=== PATIENT | male | born 1940 | race Caucasian/White ===

== ENCOUNTER 2018-07-05 11:21 | Emergency (ER) | payer MEDICARE ==
[2018-07-05] MEDS ORDERED: NS 0.9% 1000 ML* 1,000 ML IV ONE (11:50)
--- NOTE | 2018-07-05 12:24 | ED ---
Syncope/Near Syncope - HPI Summary HPI Summary: A 78 y/o male presents to the ED s/p syncope this morning. Patient was in his attic washing windows and when he stood up too quickly and fainted. His head hit and shattered the window. He is unsure whether he lost consciousness. He remembers his calling his name once, but as per she called 3 times. He states that he is UTD on his tetanus shots. He is taking hydrochlorothiazide and 81mg aspirin. He denies any neck pain. - History Of Current Complaint Chief Complaint: EDSyncope Time Seen by Provider: 07/05/18 11:42 Hx Obtained From: Patient, Family/Creative Writer - Onset/Duration: Sudden Onset, Resolved Timing: Seconds - Patient is unsure about the length but thinks it was only for a couple seconds. Activity At Onset: Other - Standing up Associated Head Trauma: Yes Associated Signs And Symptoms: Head Trauma (Recent) - laceration on his head - Allergies/Home Medications Allergies/Adverse Reactions: Allergies Allergy/AdvReac Type Severity Reaction Status Date / Time No Known Allergies Allergy Verified 07/22/12 11:42 Home Medications: Home Medications Aspirin EC TAB* [Ecotrin EC Low Dose 81 MG*] 81 mg PO DAILY PRN 07/05/18 [ History Confirmed 07/05/18] Finasteride TAB* [Proscar TAB*] 5 mg PO DAILY 07/05/18 [History Confirmed ] Glucosamine CAP (NF) 1,000 cap PO DAILY 07/05/18 [History Confirmed 07/05/18] LoraTADine TAB(NF) [Claritin 10 MG TAB(NF)] 10 mg PO DAILY 07/05/18 [History Confirmed 07/05/18] Multivitamins/Minerals TAB* [Theragran/minerals TAB*] 1 tab PO DAILY 07/05/18 [ History Confirmed 07/05/18] Olmesartan/Hydrochlorothiazide [Olmesartan Medoxomil/Hydr 40-25 mg] 1 tab PO DAILY 07/05/18 [History Confirmed 07/05/18] Maddock-3 Fatty Acids (Nf) [Fish Oil (NF)] 1,000 mg PO DAILY 07/05/18 [History Confirmed 07/05/18] PMH/Surg Hx/FS Hx/Imm Hx Previously Healthy: No Cardiovascular History: Reports: Hx Hypertension Musculoskeletal History: Reports: Hx Rheumatoid Arthritis Sensory History: Denies: Hx Legally Blind, Hx Deafness - Surgical History Surgery Procedure, Year, and Place: none Infectious Disease History: No Infectious Disease History: Denies: Traveled Outside the [place] in Last 30 Days - Family History Known Family History: Negative: Cardiac Disease, Hypertension, Diabetes - Social History Occupation: Retired Lives: With Family Alcohol Use: None Substance Use Type: Reports: None Hx Tobacco Use: No Review of Systems Negative: Fever Positive: Myalgia - neck pain Positive: Other - laceration on his head Positive: Syncope All Other Systems Reviewed And Are Negative: Yes Physical Exam - Summary Physical Exam Summary: VITAL SIGNS: Reviewed. GENERAL: Patient is a well-developed and nourished MALE who is lying comfortable in the stretcher. Patient is not in any acute respiratory distress. HEAD AND FACE: Laceration over left occipital area, 1.5 cm in length. No ecchymosis, hematomas or skull depressions. No sinus tenderness. EYES: PERRLA, EOMI x 2, No injected conjunctiva, no nystagmus. EARS: Hearing grossly intact. Ear canals and tympanic membranes are within normal limits. MOUTH: Oropharynx within normal limits. NECK: Supple, trachea is midline, no adenopathy, no JVD, no carotid bruit, no c- spine tenderness, neck with full ROM. CHEST: Symmetric, no tenderness at palpation LUNGS: Clear to auscultation bilaterally. No wheezing or crackles. CVS: Regular rate and rhythm, S1 and S2 present, no murmurs or gallops appreciated. ABDOMEN: Soft, non-tender. No signs of distention. No rebound no guarding, and no masses palpated. Bowel sounds are normal. EXTREMITIES: FROM in all major joints, no edema, no cyanosis or clubbing. NEURO: Alert and oriented x 3. No acute neurological deficits. Speech is normal and follows commands. SKIN: Dry and warm Triage Information Reviewed: Yes Vital Signs On Initial Exam: Initial Vitals Temp Pulse Resp BP Pulse Ox 98 F 88 16 162/75 99 07/05/18 11:23 07/05/18 11:23 07/05/18 11:23 07/05/18 11:23 07/05/18 11:23 Vital Signs Reviewed: Yes Procedures - Laceration/Wound Repair 1 Location: head Description: Linear Anesthesia: 1.0%, Lido, Epi Closure: Anderson #__ - 6 Diagnostics - Vital Signs Vital Signs Temp Pulse Resp BP Pulse Ox 07/05/18 11:23 98 F 88 16 162/75 99 - Laboratory Result Diagrams: 07/05/18 12:16 07/05/18 15:33 Lab Statement: Any lab studies that have been ordered have been reviewed, and results considered in the medical decision making process. - Radiology CXR Xray Interpretation: No Acute Changes - No evidence for acute intrathoracic disease. This report has been reviewed by the ED physician. Radiology Interpretation Completed By: Radiologist - CT Brain CT Interpretation: No Acute Changes - No evidence for acute intracranial abnormality. This report has been reviewed by the ED physician. CT Interpretation Completed By: Radiologist cervical spine CT Interpretation: No Acute Changes - No CT evidence for traumatic cervical spine injury. This report has been reviewed by the ED physician. CT Interpretation Completed By: Radiologist - EKG 1201 Cardiac Rate: NL - 78 bpm EKG Rhythm: Sinus Rhythm ST Segment: Normal - no ST elevation Course/Dx Assessment/Plan: A 78 y/o male presents to the ED s/p syncope this morning. Patient was in his attic washing windows and when he stood up too quickly and fainted. His head hit and shattered the window. He is unsure whether he lost consciousness. He remembers his calling his name once, but as per she called 3 times. He states that he is UTD on his tetanus shots. He is taking hydrochlorothiazide and 81mg aspirin. He denies any neck pain. Test results without any significant abnormality except for WBCs of 11.5, BUN 37 creatinine 1.82 significant for dehydration, glucose 118, total bili 1.5, urinalysis is negative for UTI, serum alcohol less than 10. Chest x-ray impression: No acute pathology. Head CT impression: No acute interconnected pathology. C-spine CT impression: No acute fracture dislocation. The laceration was repaired. Please see note. I believe that the patient had a vasovagal syncope possibly secondary to getting up too fast and slight dehydration. I discussed all the findings and test results with the patient. Patient was instructed to return to the emergency room immediately if any of the symptoms return or worsens. Plan of care was discussed with the patient and understands and agrees. All questions were answered at patient satisfaction. There were no further complaints or concerns. Lung exam before discharge: CTA B/L. Good air exchange. No wheezing or crackles heard. CVS: S1 and S2 present. No murmurs appreciated. Patient is alert and oriented x 3. Patient is hemodynamically stable. Patient will be discharged home with follow up PCP in the next 2-3 days - Diagnoses Differential Diagnosis/HQI/PQRI: Positive: Cerebral Vascular Accident, Dysrhythmia, Seizure, Transient Ischemic Attack, Vasovagal Episode Provider Diagnoses: Vasovagal syncope, Laceration Discharge - Sign-Out/Discharge Documenting (check all that apply): Patient Departure - Discharge Plan Condition: Stable Disposition: HOME Patient Education Materials: Laceration (ED), Syncope (ED) Referrals: Mike Guthrie MD [Primary Care Provider] - 3 Days Additional Instructions: Please return to the ED if you experience any new or worsening symptoms. - Billing Disposition and Condition Condition: STABLE Disposition: Home - Attestation Statements Document Initiated by Scribe: Yes Documenting Scribe: Pola Bermudez Provider For Whom Wallace is Documenting (Include Credential): Tino Devlin MD Scribe Attestation: Pola Smiley, scribed for Tino Devlin MD on 07/06/18 at 0944. Scribe Documentation Reviewed: Yes Provider Attestation: The documentation as recorded by the Pola fam accurately reflects the service I personally performed and the decisions made by me, Tino Devlin MD
[2018-07-05 12:26] LABS: Hematocrit 50 % (42-52); Mean Corpuscular HGB Conc 34 g/dl (31-36); Mean Corpuscular Hemoglobin 31 pg (27-31); Mean Corpuscular Volume 91 fL (80-94); Mean Platelet Volume 8.3 um3 (7.4-10.4); Platelet Count 824 10^3/ul (150-450); Red Blood Count 5.42 10^6/ul (4.00-5.40); Red Cell Distribution Width 15 % (10.5-15); White Blood Count 11.5 10^3/ul (3.5-10.8)
[2018-07-05 12:48] LABS: EGFR Non-African American 52.5 (>60)
[2018-07-05 12:49] LABS: ABS Basophils 0.1 10^3/ul (0-0.2); ABS Eosinophils 0.2 10^3/ul (0-0.6); ABS Lymphocytes 1.6 10^3/ul (1.0-4.8); ABS Monocytes 0.9 10^3/ul (0-0.8); ABS Neutrophils 8.7 10^3/ul (1.5-7.7); ABS Nucleated RBC 0 10^3/ul; Eosinophil % 1.9 % (0-6); Lymphocyte % 14.2 % (25-47); Nucleated Red Blood Cells % 0.1
[2018-07-05 13:38] LABS: Urine Appearance Clear; Urine Blood Negative (Negative); Urine Color Yellow; Urine Ketones Negative (Negative); Urine Protein Negative (Negative); Urine Specific Gravity 1.014 (1.010-1.030); Urine Urobilinogen Negative (Negative)
[2018-07-05] MEDS ORDERED: Lidocaine 1% INJ* 10 MG/ML 30 ML SDV ONE (14:06)
[2018-07-05] MEDS ORDERED: Lidocaine 2% EPI 1:200000 MPF*10-20 ML VIAL ONE (14:06)
--- NOTE | 2018-07-05 14:08 | RAD ---
INDICATION: Syncope. COMPARISON: There are no relevant prior studies available for comparison. TECHNIQUE: Contiguous axial sections of the brain were obtained from the skull base to the vertex without contrast. FINDINGS: The ventricles, cisterns and sulci are enlarged consistent with diffuse atrophy. No significant focal abnormality or mass effect is seen. There is no evidence for hemorrhage. No significant focal osseous abnormality is seen. The visualized portion of the paranasal sinuses and mastoid air cells appear clear. IMPRESSION: NO EVIDENCE FOR ACUTE INTRACRANIAL ABNORMALITY.
--- NOTE | 2018-07-05 14:10 | RAD ---
INDICATION: Syncopal episode. COMPARISON: June 11, 2009 cervical spine radiographs. TECHNIQUE: Multidetector CT images foramen magnum to lung apices without contrast. Multiplanar reformation. REPORT: Normal vertebral alignment accounting for exam positioning without spondylolisthesis or subluxation at any level. Negative for cervical vertebral body or posterior element fracture. Negative for paravertebral hematoma. 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 At C3-C4 uncinate process spurring and facet joint osteoarthritis results in moderately severe bilateral foraminal stenosis. At C4-C5 uncinate process spurring and facet joint osteoarthritis results in moderately severe RIGHT foraminal stenosis. At C5-C6 uncinate process spurring and facet joint osteoarthritis results in moderately severe bilateral foraminal stenosis. 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 IMPRESSION: #. No CT evidence for traumatic cervical spine injury.
--- NOTE | 2018-07-05 14:43 | RAD ---
INDICATION: Syncopal episode. Fall. COMPARISON: No relevant prior exams available on the [facility] PACS for comparison. TECHNIQUE: Dual energy PA and routine lateral views of the chest were obtained. REPORT: No focal pulmonary lesion, compelling alveolar consolidation, pleural effusion, pneumothorax. Negative for cardiomegaly. Unremarkable central pulmonary vasculature. Mild tortuous descending thoracic aorta. Degenerative arthropathy at the glenohumeral joints. No fracture evident. IMPRESSION: #. No evidence for acute intrathoracic disease.
[2018-07-05 15:58] VITALS: BP 138/88
== END 2018-07-05 15:57 | disposition home or self-care (01) ==
LOC: ED 11:21
DX: S01.91XA Laceration without foreign body of unspecified part of head, initial encounter (principal); R55 Syncope and collapse; W25.XXXA Contact with sharp glass, initial encounter; Y92.9 Unspecified place or not applicable
CPT/HCPCS: 12001; 36415; 70450; 71046; 72125; 80053; 80320; 81003; 82140; 83605; 83735; 83880; 84443; 84484; 85025; 93005; 96360; 99283; G0480